=== PATIENT | female | born 1965 | race Native Hawaiian/Other Pacific Islander ===

== ENCOUNTER 2020-08-22 16:59 | Emergency (ER) | payer OTHER ==
[~2020-08-22] VITALS: Ht 162.6 cm; Wt 107.5 kg
[2020-08-22 17:21] LABS: PLATELET COUNT 362 K/uL (152-353)
[2020-08-22 17:33] LABS: POTASSIUM 3.7 mmol/L (3.6-5.2)
[2020-08-22 18:38] VITALS: BP 163/90; TEMP 97.7
[2020-08-22] MEDS ORDERED: MAGNSUS68 PO (22:35)
[2020-08-22] MEDS ORDERED: TYLENOL325 MG PO (22:35)
[2020-08-22] MEDS ORDERED: TRAMADOL HYDROC50 MG PO (22:36)
[2020-08-22] MEDS ORDERED: TIZA4TAB5 PO (22:37)
[2020-08-22] MEDS ORDERED: MIRALAX17 GM PO (22:38)
[2020-08-22] MEDS ORDERED: DOCU100C10 PO (22:59)
[2020-08-22] MEDS ORDERED: AMLO2.5T PO (23:00)
[2020-08-22] MEDS ORDERED: MOBIC15 MG PO (23:02)
[2020-08-22] MEDS ORDERED: DICL1GEL2 TOP (23:07)
[2020-08-22] MEDS ORDERED: TRAZODONE HYDR150 MG PO (23:09)
[2020-08-22] MEDS ORDERED: CLONIDINE HYDR0.1 M2 PO (23:21)
[2020-08-22] MEDS ORDERED: DIVA250T2 PO (23:22)
[2020-08-22] MEDS ORDERED: LIPOZENE PO (23:24)
== END 2020-08-22 18:38 | disposition still patient (30) ==
LOC: EDBD 16:59 → ED 16:59
PROVIDERS: Hospitalist
DX: R46.89 Other symptoms and signs involving appearance and behavior (principal); Z11.52 Encounter for screening for COVID-19; Z04.6 Encounter for general psychiatric examination, requested by authority
CPT/HCPCS: 80053; 81000; 83880; 84484; 85027; 87077; 87086; 87088; 87186; 87635; 93005; 99283; U0003